=== PATIENT | female | born 1965 | race Hispanic/Latino ===

== ENCOUNTER → 2018-12-18 | Outpatient (CLI) | payer OTHER ==
[~2018-12-18] MED LIST: ALPR1TAB2 PO; AMIT10TA6 PO; ATOR10TA69 PO; CETI-101 PO; DEXL60CA3 PO; DOCU-282 PO; FLUOXETINE PO; IBUP-2077 PO; METF-444 PO; METO50TA9 PO; ONDA4TAB4 PO; ROPI1TAB38 PO; ZENPEP PO
== END | disposition home or self-care (01) ==
LOC: RAH 14:14
PROVIDERS: ATTEND Internal Medicine Hematology & Oncology
DX: M79.89 Other specified soft tissue disorders (principal); D72.89 Other specified disorders of white blood cells; M32.9 Systemic lupus erythematosus, unspecified
CPT/HCPCS: 93971